=== PATIENT | female | born 1995 | race Caucasian/White ===

== ENCOUNTER 2022-07-31 06:00 | Inpatient (IN) | payer OTHER ==
[2022-07-23 09:07] VITALS: BMI 32.5
--- NOTE | 2022-07-30 20:53 | P.HPOB ---
History of Present Illness H&P Date: 07/30/22 Chief Complaint: repeat low transverse 27 year old presents at 39+ weeks for repeat low transverse . Review of Systems All systems: negative Constitutional: Denies chills, Denies fever Eyes: denies blurred vision, denies pain Ears, nose, mouth and throat: Denies headache, Denies sore throat Cardiovascular: Denies chest pain, Denies shortness of breath Respiratory: Denies cough Gastrointestinal: Denies abdominal pain, Denies diarrhea, Denies nausea, Denies vomiting Genitourinary: Denies dysuria, Denies hematuria Musculoskeletal: Denies myalgias Integumentary: Denies pruritus, Denies rash Neurological: Denies numbness, Denies weakness Psychiatric: Denies anxiety, Denies depression Endocrine: Denies fatigue, Denies weight change Past Medical History Past Medical History: GERD/Reflux History of Any Multi-Drug Resistant Organisms: None Reported Past Surgical History: Section Past Anesthesia/Blood Transfusion Reactions: No Reported Reaction Past Psychological History: No Psychological Hx Reported Smoking Status: Current every day smoker Past Alcohol Use History: None Reported Additional Past Alcohol Use History / Comment(s): Smokes 10 cigarettes daily for last 10 yrs. Past Drug Use History: Marijuana Additional Drug Use History / Comment(s): Last used Marijuana a few months ago. - Past Family History Mother Family Medical History: No Reported History Medications and Allergies Home Medications Medication Instructions Recorded Confirmed Type No Known Home Medications 07/23/22 07/23/22 History Allergies Allergy/AdvReac Type Severity Reaction Status Date / Time No Known Allergies Allergy Verified 07/23/22 08:59 Exam Osteopathic Statement: *. No significant issues noted on an osteopathic structural exam other than those noted in the History and Physical/Consult. Heart: Regular rate and rhythm Lungs: Clear to auscultation bilaterally Abdomen: Soft, nontender Extremities: Negative Homans sign Assessment and Plan (1) Previous section Status: Acute Code(s): Z98.891 - HISTORY OF UTERINE SCAR FROM PREVIOUS SURGERY SNOMED Code(s): 338517400 Plan: 1. repeat low transverse
[2022-07-31] MEDS ORDERED: CITRIC ACID-SODIUM CITRATE 15 ML CUP PO ONE (06:15)
[2022-07-31 06:22] VITALS: RESP 16
[2022-07-31 06:58] LABS: Basophils % (A) 0 %; Eosinophils # (A) 0.1 k/uL (0-0.7); Eosinophils % (A) 1 %; HCT 31.9 % (34.0-46.0); HGB 10.8 gm/dL (11.4-16.0); Lymphocytes # (A) 2.4 k/uL (1.0-4.8); Lymphocytes % (A) 19 %; MCH 30.3 pg (25.0-35.0); MCV 89.2 fL (80.0-100.0); Mean Platelet Volume 8.5; Monocytes # (A) 0.7 k/uL (0-1.0); Monocytes % (A) 6 %; Neutrophils # (A) 9.2 k/uL (1.3-7.7); Neutrophils % (A) 72 %; Platelet Count 261 k/uL (150-450); RBC 3.57 m/uL (3.80-5.40); RDW 13.3 % (11.5-15.5); WBC 12.9 k/uL (3.8-10.6)
[2022-07-31] MEDS: LACTATED RINGERS 1,000 ML IV SCH ×3 (07:23→19:46)
[2022-07-31] MEDS ORDERED: fentaNYL (PF) 50 MCG/ML 2 ML AMP ONE (07:47)
[2022-07-31] MEDS ORDERED: KETOROLAC 30 MG/ML 1 ML VIAL ONE (07:47)
[2022-07-31] MEDS ORDERED: ONDANSETRON 4 MG/2 ML VIAL ONE (07:47)
[2022-07-31] MEDS ORDERED: OXYTOCIN 30 UNITS/500 ML NS BAG IV ONE (07:47)
[2022-07-31] MEDS ORDERED: MORPHINE SULFATE (PF) 0.3 MG/0.3 ML SYR ONE (07:47)
[2022-07-31] MEDS ORDERED: NALBUPHINE 10 MG/ML (1 ML AMP) ONE (07:47)
[2022-07-31] MEDS ORDERED: PHENYLEPHRINE-0.9% NACL SYG 1,000 MCG/10 ML SYRINGE ONE (07:47)
[2022-07-31] MEDS ORDERED: METOCLOPRAMIDE 5 MG/ML 2 ML VIAL IVP PRN (08:25)
[2022-07-31] MEDS ORDERED: diphenhydrAMINE 25 MG CAP PO PRN (08:25)
[2022-07-31] MEDS ORDERED: ZOLPIDEM 5 MG TAB PO PRN (08:25)
[2022-07-31] MEDS ORDERED: SIMETHICONE 80 MG CHEWABLE PO PRN (08:25)
[2022-07-31] MEDS ORDERED: LANOLIN CREAM 5 GM TUBE TOPICAL PRN (08:25)
[2022-07-31] MEDS ORDERED: NALOXONE 0.4 MG/ML 1 ML VIAL IV PRN ×2 (08:25→13:43)
[2022-07-31] MEDS ORDERED: diphenhydrAMINE 50 MG CAP PO PRN (08:25)
[2022-07-31] MEDS ORDERED: diphenhydrAMINE 50 MG/ML 1 ML VIAL IVP PRN ×2 (08:25)
[2022-07-31] MEDS ORDERED: ONDANSETRON 4 MG/2 ML VIAL IVP PRN (08:25)
--- NOTE | 2022-07-31 08:26 | P.OP ---
Date of Procedure: 07/31/22 Preoperative Diagnosis: 1. at 39 weeks 6 days 2. previous Postoperative Diagnosis: same Procedure(s) Performed: Repeat low transverse Anesthesia: spinal Surgeon: Lou Desir Gantry Crane Operator #1: Jaylan Ramirez Estimated Blood Loss (ml): 385 IV fluids (ml): 1,500 Urine output (ml): 800 Pathology: none sent Condition: stable Disposition: floor Operative Findings: Viable female, Apgars 8, 9, weight 7 lbs. 3 oz. normal uterus, tubes, ovaries Description of Procedure: Patient was taken to the operating room where spinal anesthesia was found be adequate. She was prepped and draped in normal sterile fashion in dorsal supine position with a leftward tilt. Pfannenstiel skin incision was made the scalpel and carried through to the underlying layer of fascia with the scalpel. Fascia was incised in midline and carried bilaterally with the Ram scissors. The superior aspect of the fascial incision was grasped with Yajaira clamps elevated and the underlying rectus muscles dissected off with the Ram's. Attention was then turned to inferior aspect of same incision which in a similar fashion was grasped tented up and the underlying rectus muscles dissected off with the Ram's. The rectus muscles were the midline and the peritoneum was identified tented up and entered sharply with the scalpel. The incision was extended superiorly and inferiorly with good visualization of the bladder. The bladder blade was inserted and the vesicouterine peritoneum was incised the Metzenbaums then carried bilaterally and bladder flap created digitally. A low transverse incision was then made on the uterus with the scalpel. This was carried bilaterally and digital manner. 's head delivered atraumatically, nose and mouth bulb suctioned, cord clamped and cut, infant handed off to waiting nurses. Apgars 8,9, weight 7 lbs. 3 oz. Placenta delivered manually, intact with three-vessel cord. The uterus is exteriorized and cleared of all clots and debris. The uterine incision was closed with 0 Vicryl in a running locked fashion. Second layer of the same sutures used in imbricating fashion to obtain excellent hemostasis. Both ovaries and tubes appeared normal. The uterus was placed back into the abdomen. The peritoneum was reapproximated using 2-0 Vicryl in a running fashion. The muscles were reapproximated using 2- 0 Vicryl in interrupted fashion. The fascia was reapproximated using 0 Vicryl in a running fashion. The subcutaneous tissues closed with 3-0 Vicryl running fashion. The skin was closed tory. Patient tolerated the procedure well, sponge and instrument counts were correct times 2 and she was taken to the recovery room in stable condition.
[2022-07-31 08:30] LABS: Amphetamine Screen,Urine Not Detected (NotDetected); Barbiturate Screen,Urine Not Detected (NotDetected); Benzodiazepines Screen,Urine Not Detected (NotDetected); Cocaine Screen,Urine Not Detected (NotDetected); Methadone Screen, Urine Not Detected (NotDetected); Opiate Screen,Urine Not Detected (NotDetected); Oxycodone Screen, Urine Not Detected (NotDetected); Phencyclidine Screen,Urine Not Detected (NotDetected); Tricyclic Antidepressant,Urine Not Detected (NotDetected); Urn Cannabinoid Scrn Not Detected (NotDetected)
[2022-07-31] MEDS ORDERED: OXYTOCIN 30 UNITS/500 ML NS 30 UNIT in SALINE 1 500ML.BAG IV SCH (08:30)
[2022-07-31] MEDS: ACETAMINOPHEN TAB 500 MG TAB PO SCH ×2 (11:10→17:34)
[2022-07-31] MEDS ORDERED: MORPHINE SULFATE 2 MG/ML SYRINGE IVP PRN (13:43)
[2022-07-31] MEDS: IBUPROFEN 600 MG TAB PO SCH ×2 (14:30→21:39)
[2022-07-31] MEDS: KETOROLAC 15 MG/ML 1 ML VIAL IVP SCH ×2 (14:30→19:37)
[2022-07-31] MEDS: SENNOSIDES-DOCUSATE SODIUM 1 EACH TAB PO SCH (19:38)
[2022-08-01] MEDS: ACETAMINOPHEN TAB 500 MG TAB PO SCH ×4 (00:26→18:04)
[2022-08-01] MEDS: KETOROLAC 15 MG/ML 1 ML VIAL IVP SCH ×2 (03:02→08:30)
[2022-08-01] MEDS: IBUPROFEN 600 MG TAB PO SCH ×3 (03:06→15:30)
[2022-08-01 07:57] LABS: Basophils % (A) 0 %; Eosinophils # (A) 0.2 k/uL (0-0.7); Eosinophils % (A) 1 %; HCT 27.3 % (34.0-46.0); Lymphocytes # (A) 1.7 k/uL (1.0-4.8); Lymphocytes % (A) 15 %; MCH 29.7 pg (25.0-35.0); MCHC 33.3 g/dL (31.0-37.0); MCV 89.3 fL (80.0-100.0); Mean Platelet Volume 8.7; Monocytes # (A) 0.7 k/uL (0-1.0); Monocytes % (A) 6 %; Neutrophils # (A) 8.2 k/uL (1.3-7.7); Neutrophils % (A) 74 %; Platelet Count 200 k/uL (150-450); RBC 3.06 m/uL (3.80-5.40); RDW 13.3 % (11.5-15.5); WBC 11.1 k/uL (3.8-10.6)
[2022-08-01 08:02] LABS: HGB 9.1 gm/dL (11.4-16.0)
--- NOTE | 2022-08-01 08:08 | P.PNOBGPC ---
Subjective - Subjective Principal diagnosis: Status post repeat low transverse postop day 1 Interval history: Seen and examined. Denies nausea, vomiting, chest pain, shortness of breath or any calf pain. Patient reports: Reports appetite normal, Reports voiding normally, Reports pain well controlled, Reports ambulating normally [place]: doing well Objective - Vital Signs Latest vital signs: Vital Signs Temp Pulse Resp BP Pulse Ox 08/01/22 05:42 16 99 08/01/22 04:00 98.2 F 80 16 115/70 99 08/01/22 01:10 99 08/01/22 01:09 16 99 08/01/22 00:00 97.9 F 78 16 119/67 07/31/22 22:00 16 98 07/31/22 20:00 98.2 F 71 16 109/72 07/31/22 18:00 16 97 07/31/22 16:43 16 07/31/22 16:00 98.0 F 82 16 117/79 97 07/31/22 14:43 16 98 07/31/22 13:43 16 98 07/31/22 12:00 97.8 F 76 16 118/67 98 07/31/22 10:30 97.3 F L 81 16 107/65 97 07/31/22 10:00 74 16 116/65 98 07/31/22 09:30 71 16 123/73 97 07/31/22 09:15 79 16 127/69 97 07/31/22 09:00 78 16 134/79 97 07/31/22 08:45 76 16 135/78 97 07/31/22 08:30 97.0 F L 82 16 122/72 96 Intake and Output 07/31/22 08/01/22 08/01/22 22:59 06:59 14:59 Output Total 800 800 Balance -800 -800 Output: Urine 800 800 Other: # Voids 1 2 - Exam Lungs: bilateral: normal Chest: Normal S1, Normal S2 Extremities: Present: normal Abdomen: Present: normal appearance, soft. Absent: distention, tenderness Incision: Present: normal, dry, intact Uterus: Present: normal, firm - Labs Labs: Abnormal Lab Results - Last 24 Hours (Table) 08/01/22 Range/Units 07:27 WBC 11.1 H (3.8-10.6) k/uL RBC 3.06 L (3.80-5.40) m/uL Hgb 9.1 L D (11.4-16.0) gm/dL Hct 27.3 L (34.0-46.0) % Neutrophils # 8.2 H (1.3-7.7) k/uL Assessment and Plan (1) Previous section Current Visit: No Status: Resolved Code(s): Z98.891 - HISTORY OF UTERINE SCAR FROM PREVIOUS SURGERY SNOMED Code(s): 541415501 (2) Status post repeat low transverse section Current Visit: Yes Status: Acute Code(s): Z98.891 - HISTORY OF UTERINE SCAR FROM PREVIOUS SURGERY SNOMED Code(s): 687761083 Plan: 1. Increase ambulation 2. Regular diet 3. By mouth pain medication
[2022-08-01] MEDS: SENNOSIDES-DOCUSATE SODIUM 1 EACH TAB PO SCH ×2 (08:30→20:19)
--- NOTE | 2022-08-01 08:37 | P.PN ---
Progress Note - Text Progress Note Date: 08/01/22 Postop day 1 from under spinal anesthesia with intrathecal morphine given for postop pain management. Patient is doing well. Pain is well controlled. On visual analog scale 3/10 Mild itching present No nausea or vomiting reported. No Headache or weakness and numbness in the legs. No complications from spinal anesthesia.
[2022-08-02] MEDS: IBUPROFEN 600 MG TAB PO SCH ×3 (00:31→16:24)
[2022-08-02] MEDS: ACETAMINOPHEN TAB 500 MG TAB PO SCH ×3 (04:44→15:06)
--- NOTE | 2022-08-02 08:32 | P.DS ---
Providers Date of admission: 07/31/22 06:00 Expected date of discharge: 08/02/22 Attending physician: Lou Desir Primary care physician: Stated None - Discharge Diagnosis(es) (1) Previous section Current Visit: No Status: Resolved (2) Status post repeat low transverse section Current Visit: Yes Status: Acute Hospital Course: Patient presented for repeat low transverse and underwent this procedure without complication. She denies nausea, vomiting, chest pain, shortness of breath or calf pain. Patient will be discharged home postoperative day #2 in stable condition to follow-up with me in one week. Plan - Discharge Summary Discharge Rx Participant: No New Discharge Prescriptions: New Ibuprofen [Motrin] 600 mg PO Q6H #30 tab oxyCODONE HCL [OxyIR] 5 mg PO Q4HR PRN #18 tab PRN Reason: Pain Scale 4 - 6 Discharge Medication List Ibuprofen [Motrin] 600 mg PO Q6H #30 tab 08/02/22 [Rx] oxyCODONE HCL [OxyIR] 5 mg PO Q4HR PRN #18 tab 08/02/22 [Rx] Follow up Appointment(s)/Referral(s): Lou Desir DO [Doctor of Osteopathic Medicine] - 09/10/22 3:45 pm (Post Op appt 08-12-2022 at 1:30) Discharge Disposition: HOME SELF-CARE
[2022-08-02 09:55] VITALS: BP 121/77; PULSE 95; TEMP 98
[2022-08-02] MEDS: SENNOSIDES-DOCUSATE SODIUM 1 EACH TAB PO SCH (13:30)
== END 2022-08-02 15:30 | disposition home or self-care (01) | DRG 999 ==
LOC: 4FBP 06:00
PROVIDERS: ADMIT Obstetrics & Gynecology; ATTEND Obstetrics & Gynecology
PROC: 10D00Z1 Extraction of Products of Conception, Low, Open Approach (ICD-10-PCS; principal; 2022-07-31 08:00)
DX: O34.211 Maternal care for low transverse scar from previous cesarean delivery (principal); F17.210 Nicotine dependence, cigarettes, uncomplicated; O99.334 Smoking (tobacco) complicating childbirth; Z37.0 Single live birth; Z3A.39 39 weeks gestation of pregnancy; Z28.310 Unvaccinated for COVID-19; O34.219 Maternal care for unspecified type scar from previous cesarean delivery; N85.8 Other specified noninflammatory disorders of uterus; K21.9 Gastro-esophageal reflux disease without esophagitis; O99.62 Diseases of the digestive system complicating childbirth; Z71.6 Tobacco abuse counseling
CPT/HCPCS: 80306; 85025; 86850; 86900; 86901